=== PATIENT | female | born 2005 | race Asian ===

== ENCOUNTER 2023-12-31 18:31 | Emergency (ER) | payer OTHER ==
[~2023-12-31] VITALS: Ht 157.5 cm; Wt 53.9 kg
[2023-12-31] MEDS: ketorolac trometh 30MG/ML vial 30 MG/ML VIAL IM ONE (21:47)
[2023-12-31 22:19] VITALS: BP 107/73; PULSE 99; RESP 18; O2SAT 100
[2023-12-31] MEDS: acetaminophen 325mg tablet PO ONE (22:40)
[2023-12-31] MEDS: ibuprofen 200mg tablet PO ONE (22:40)
[2023-12-31 22:58] VITALS: TEMP 98.3
== END 2023-12-31 23:07 | disposition home or self-care (01) ==
LOC: ER 18:32
DX: S13.4XXA Sprain of ligaments of cervical spine, initial encounter (principal); S16.1XXA Strain of muscle, fascia and tendon at neck level, initial encounter; M54.50 Low back pain, unspecified; G44.209 Tension-type headache, unspecified, not intractable; V89.2XXA Person injured in unspecified motor-vehicle accident, traffic, initial encounter; Y93.89 Activity, other specified; Y92.89 Other specified places as the place of occurrence of the external cause; Y99.8 Other external cause status
CPT/HCPCS: 72125; 99284; L0172